=== PATIENT | male | born 1985 | race Two or more races ===

== ENCOUNTER 2021-05-13 14:00 | Emergency (ER) | payer MEDICAID, OTHER ==
[~2021-05-13] VITALS: Ht 157.5 cm; Wt 77.0 kg
[2021-05-13 14:06] VITALS: BP 141/95
--- NOTE | 2021-05-13 14:21 | NUR ---
HOME CARE SCHEDULER: PHYSICIAN NON INVASIVE CARDIOLOGIST [id number] [facility] USED.
== END 2021-05-13 17:24 | disposition home or self-care (01) ==
LOC: ED 17:24
DX: U07.1 COVID-19 (principal); J06.9 Acute upper respiratory infection, unspecified
CPT/HCPCS: 71045; 87081; 87880; 99284; U0003; U0005